=== PATIENT | female | born 1935 | race African-American/Black ===

== ENCOUNTER 2016-10-07 08:31 | Day surgery (SDC) | payer MEDICARE, MEDICAID ==
[~2016-10-07] VITALS: Ht 167.6 cm; Wt 58.6 kg
[2016-10-07] MEDS ORDERED: PROTONIX40 MG PO (09:12)
[2016-10-07] MEDS ORDERED: SYNTHROID88 MCG PO (09:13)
[2016-10-07 09:14] LABS: BASOPHILS 0.2 % (0.0-2.0); EOSINOPHILS 2.1 % (0-7); HEMATOCRIT 39.6 % (36.0-48.0); HEMOGLOBIN 12.7 g/dL (12-16); IMMATURE GRANULOCYTES 0.2 % (0-5); LYMPHOCYTES 27.9 % (15-50); MCH 30.5 pg (26.0-34.0); MCHC 32.1 g/dL (31.0-37.0); MCV 95.2 fL (80.0-100.0); MEAN PLATELET VOLUME 10.9 fL (7.4-10.4); MONOCYTES 9.7 % (2-11); NEUTROPHILS 59.9 % (40-80); PLATELET COUNT 149 10x3/uL (130-400); RBC 4.16 10x6/uL (4.00-5.40); RDW 13.6 % (11.5-14.5); WBC 4.3 10x3/uL (4.8-10.8)
[2016-10-07] MEDS ORDERED: LISINOPRIL5 MG PO (09:14)
[2016-10-07] MEDS ORDERED: ZOCOR20 MG PO (09:15)
[2016-10-07] MEDS ORDERED: COREG6.25 MG PO (09:16)
[2016-10-07] MEDS ORDERED: HYDROCODON-ACE1 EAC7 PO (09:17)
[2016-10-07 09:33] LABS: ANION GAP 9.9 mmol/L (8-16); CALCIUM 9.5 mg/dL (8.5-10.1); CARBON DIOXIDE 31.7 mmol/L (21.0-32.0); CREATININE - SERUM 0.9 mg/dL (0.6-1.3); POTASSIUM - SERUM 3.6 mmol/L (3.5-5.1)
[2016-10-07 09:34] VITALS: BP 157/89; Ht 167.6 cm; Wt 58.6 kg
--- NOTE | 2016-10-07 12:08 | NUR ---
1208 TO GI RECOVERY AREA TO BE MONITORED.
--- NOTE | 2016-10-07 14:01 | NUR ---
1250 iv dc with cather tip intact
--- NOTE | 2016-10-11 13:02 | OP ---
PATIENT NAME: MARISA MARTE MEDICAL RECORD: [id number] :37 LOCATION:[facility] ADMISSION DATE: SURGEON: LOUISE EUGENE DO DATE OF OPERATION: 10/07/2016 PROCEDURE: EGD with biopsies. SCOPE: Olympus video gastroscope. MEDICATIONS: Propofol 80 mg IV per anesthesia. INDICATIONS: Gastroesophageal reflux disease. FINDINGS: Informed consent was given. The patient was made comfortable with the above medication. After reaching an adequate level of sedation by slow IV push, the patient was placed on her left side. The endoscope was then advanced under direct visualization through the mouth to the second portion of the duodenum. The upper, middle, and distal third of the esophagus appeared normal. There was some questionable tension on the endoscope passing through the cricopharyngeus raising suspicion for hypertensive upper esophageal sphincter. This could fit with the patient's symptoms as she described preprocedurally of things sticking in her throat. The GE junction revealed no specific esophagitis. The scope was advanced into the stomach and retroflexed to view the cardia, which appeared normal. The fundus, body of the stomach, and antrum had some granularity and erythema consistent with possible gastritis. Random biopsies were taken of the antrum, incisura, and body of the stomach. Scope was advanced through the pylorus into the bulb of the duodenum and down to the second portion. Both of these sites appeared normal. Scope was then withdrawn from the patient. The patient tolerated the procedure well and there were no complications. IMPRESSION: 1. Possible gastritis. 2. History of an adenomatous polyp in the antrum of the stomach. There were no visualized polyps on today's study. 3. Symptomatic oropharyngeal dysphagia. PLAN AND RECOMMENDATIONS: 1. Discharge home when recovery parameters are met. 2. Continue Protonix 40 mg daily. 3. Consider a barium esophagram versus modified barium swallow for symptoms of oropharyngeal dysphagia. 4. Follow up in the GI clinic as previously scheduled or as needed. TRANSINT:[id number] Voice Confirmation ID: [id number] DOCUMENT ID: [id number] LOUISE EUGENE DO at 1302 CC: [id number] DICTATION DATE: 10/07/16 1208 TROUBLE LINEMAN: 10/07/16 1319 [facility] 10/07/16 [address] [place] [address]
== END 2016-10-07 13:06 | disposition home or self-care (01) ==
LOC: D.OPS 08:31
PROVIDERS: Anesthesiology
DX: K21.9 Gastro-esophageal reflux disease without esophagitis (principal); K29.50 Unspecified chronic gastritis without bleeding; R13.12 Dysphagia, oropharyngeal phase

== ENCOUNTER 2016-10-14 08:51 | Day surgery (SDC) | payer MEDICARE, MEDICAID ==
[~2016-10-14 08:51] MED LIST: COREG6.25 MG PO; HYDROCODON-ACE1 EAC7 PO; LISINOPRIL5 MG PO; PROTONIX40 MG PO; SYNTHROID88 MCG PO; ZOCOR20 MG PO
[2016-10-14 09:43] LABS: BASOPHILS 0.3 % (0-2); EOSINOPHILS 1.1 % (0-7); HEMATOCRIT 43.8 % (36.0-48.0); HEMOGLOBIN 13.8 g/dL (12-16); IMMATURE GRANULOCYTES 0.3 % (0-5); MCH 30.1 pg (26.0-34.0); MCHC 31.5 g/dL (31.0-37.0); MCV 95.4 fL (80.0-100.0); MEAN PLATELET VOLUME 10.8 fL (7.4-10.4); MONOCYTES 17.3 % (2-11); RBC 4.59 10x6/uL (4.00-5.40); RDW 13.6 % (11.5-14.5); WBC 3.7 10x3/uL (4.8-10.8)
[2016-10-14 09:44] LABS: PLATELET COUNT 187 10x3/uL (130-400)
[2016-10-14 10:00] LABS: ANION GAP 14.5 mmol/L (8-16); CALCIUM 9.6 mg/dL (8.5-10.1); CARBON DIOXIDE 27.8 mmol/L (21.0-32.0); POTASSIUM - SERUM 4.3 mmol/L (3.5-5.1)
== END 2016-10-14 13:10 | disposition home or self-care (01) ==
LOC: D.OPS 08:51
PROVIDERS: Anesthesiology
DX: D12.0 Benign neoplasm of cecum (principal); D12.2 Benign neoplasm of ascending colon; K57.30 Diverticulosis of large intestine without perforation or abscess without bleeding; K64.8 Other hemorrhoids; Z01.812 Encounter for preprocedural laboratory examination; I25.10 Atherosclerotic heart disease of native coronary artery without angina pectoris; I10 Essential (primary) hypertension; E03.9 Hypothyroidism, unspecified; K21.9 Gastro-esophageal reflux disease without esophagitis

== ENCOUNTER 2019-06-25 09:34 | Day surgery (SDC) | payer MEDICARE, MEDICAID ==
[~2019-06-25] VITALS: Ht 167.6 cm; Wt 58.6 kg
[2019-06-25 10:08] LABS: BASOPHILS 0.6 % (0-2); EOSINOPHILS 3.7 % (0-7); HEMATOCRIT 40.1 % (36.0-48.0); HEMOGLOBIN 12.9 g/dL (12-16); LYMPHOCYTES 47.2 % (15-50); MCH 30.2 pg (26.0-34.0); MCHC 32.2 g/dL (31.0-37.0); MCV 93.9 fL (80.0-100.0); MEAN PLATELET VOLUME 10.8 fL (7.4-10.4); MONOCYTES 9.2 % (2-11); NEUTROPHILS 39.3 % (40-80); PLATELET COUNT 178 10x3/uL (130-400); RBC 4.27 10x6/uL (4.00-5.40); RDW 12.9 % (11.5-14.5); WBC 3.3 10x3/uL (4.8-10.8)
[2019-06-25 10:14] LABS: ANION GAP 9.4 mmol/L (8-16); CALCIUM 9.7 mg/dL (8.5-10.1); CARBON DIOXIDE 32.6 mmol/L (21.0-32.0); CREATININE - SERUM 0.9 mg/dL (0.6-1.3)
[2019-06-25] MEDS ORDERED: BAYER CHEWABLE81 MG PO (10:27)
[2019-06-25 10:39] VITALS: BP 179/84; Ht 167.6 cm; Wt 58.6 kg
--- NOTE | 2019-06-25 14:52 | NUR ---
1235 IV DC'D. CATHETER TIP INTACT. NO BLEEDING AT SITE. BANDAID APPLIED.
--- NOTE | 2019-06-26 07:49 | OP ---
PATIENT NAME: MARISA MARTE MEDICAL RECORD: [id number] :37 LOCATION:[facility] ADMISSION DATE: SURGEON: LOUISE EUGENE DO DATE OF OPERATION: 06/25/2019 PROCEDURE: EGD with balloon dilation and biopsies. INDICATIONS FOR PROCEDURE: Periumbilical abdominal pain, dysphagia, GERD, abnormal weight loss, nausea. SCOPE: Olympus video gastroscope. MEDICATIONS: Propofol 130 mg IV per anesthesia. ESTIMATED BLOOD LOSS: Minimal. COMPLICATIONS: None. FINDINGS: Informed consent was given. The patient was made comfortable with the above medication. After reaching an adequate level of sedation by slow IV push, the patient was placed on her left side. The endoscope was advanced under direct visualization through the mouth to the second portion of the duodenum. The entire esophagus appeared normal down to the GE junction. At the GE junction, there was a mild nonobstructing Schatzki ring. There was also some mild LA class A reflux-induced esophagitis. Biopsies were taken from the ring/squamocolumnar junction and the ring was dilated to 18 mm successfully. The endoscope was advanced beyond the GE junction into the stomach and retroflexed to view the cardia, where a small sliding hiatal hernia was visualized. Throughout the entire stomach, there were patchy areas of erythema, granularity, and congestion consistent with gastritis. Cold forceps, biopsies were taken from the antrum and incisura to submit for histopathology and to rule out the presence of H. pylori. The endoscope was advanced beyond the pylorus into the duodenum, which appeared normal to the second portion. The endoscope was then withdrawn from the patient. The patient tolerated the procedure well and there were no immediate complications. IMPRESSION: 1. LA class A reflux-induced esophagitis. 2. Mild nonobstructing Schatzki ring, status post dilation 18 mm. 3. Small sliding hiatal hernia. 4. Gastritis. PLAN AND RECOMMENDATIONS: 1. Discharge home when recovery parameters are met. 2. Follow up biopsy specimen results. 3. GERD diet and reflux precautions. 4. Continue current medications including Protonix 40 mg daily. 5. We will offer a manometry study to the patient as her dysphagia has been worked up in the past including a barium Esophagram, modified barium swallow and upper GI. She has also had a gastric emptying scan as well as the upper GI for her pain type symptoms. The studies have all been normal other than a suggestion of an esophageal spasm on the esophagram. 6. Follow up in GI clinic in 4 weeks following the manometry study. TRANSINT:[id number] Voice Confirmation ID: [id number] DOCUMENT ID: [id number] OPERATIVE REPORT [id number] MARISA MARTE NATHAN A DO at 0749 CC: [id number] DICTATION DATE: 06/25/19 1130 ELECTRONICS MECHANIC: 06/25/19 1615 [facility] 06/25/19 [id number] [place] [address]
== END 2019-06-25 13:00 | disposition home or self-care (01) ==
LOC: D.OPS 09:34
PROVIDERS: Anesthesiology; ATTEND Internal Medicine Gastroenterology
DX: K21.0 Gastro-esophageal reflux disease with esophagitis (principal); K44.9 Diaphragmatic hernia without obstruction or gangrene; K22.2 Esophageal obstruction; R10.33 Periumbilical pain; R13.10 Dysphagia, unspecified; R63.4 Abnormal weight loss; R11.0 Nausea; K59.09 Other constipation; Z86.010 Personal history of colon polyps; K29.70 Gastritis, unspecified, without bleeding

== ENCOUNTER 2019-11-11 20:33 | Emergency (ER) | payer MEDICARE, MEDICAID ==
[~2019-11-11] VITALS: Ht 167.6 cm; Wt 59.0 kg
[~2019-11-11 20:33] MED LIST changes: +BAYER CHEWABLE81 MG PO
[2019-11-11 20:38] VITALS: Ht 167.6 cm; Wt 59.0 kg
[2019-11-11] MEDS ORDERED: ZOLOFT25 MG PO (20:40)
[2019-11-11 21:59] VITALS: BP 173/86
== END 2019-11-11 21:59 | disposition home or self-care (01) ==
LOC: D.ER 20:33
DX: K44.9 Diaphragmatic hernia without obstruction or gangrene (principal); K21.0 Gastro-esophageal reflux disease with esophagitis; F41.9 Anxiety disorder, unspecified; R13.10 Dysphagia, unspecified; K22.2 Esophageal obstruction; I10 Essential (primary) hypertension; I25.2 Old myocardial infarction; K21.9 Gastro-esophageal reflux disease without esophagitis; E03.9 Hypothyroidism, unspecified

== ENCOUNTER → 2019-11-28 07:54 | Outpatient (CLI) | payer MEDICARE, MEDICAID ==
[2019-11-11 20:38] VITALS: BMI 20.8
[~2019-11-28 07:54] MED LIST changes: +ZOLOFT25 MG PO
== END | disposition home or self-care (01) ==
LOC: D.OPS 07:54
PROVIDERS: ATTEND Internal Medicine Gastroenterology
DX: R13.10 Dysphagia, unspecified (principal)

== ENCOUNTER 2019-12-21 16:51 | Emergency (ER) | payer MEDICARE, MEDICAID ==
[~2019-12-21] VITALS: Ht 167.6 cm; Wt 56.8 kg
[2019-12-21 16:57] VITALS: Ht 167.6 cm; Wt 56.8 kg
[2019-12-21 18:57] LABS: BASOPHILS 0.2 % (0-2); EOSINOPHILS 1.8 % (0-7); HEMATOCRIT 39.6 % (36.0-48.0); HEMOGLOBIN 12.6 g/dL (12-16); IMMATURE GRANULOCYTES 0.2 % (0-5); LYMPHOCYTES 32.6 % (15-50); MCH 29.8 pg (26.0-34.0); MCHC 31.8 g/dL (31.0-37.0); MCV 93.6 fL (80.0-100.0); MEAN PLATELET VOLUME 10.5 fL (7.4-10.4); MONOCYTES 10.7 % (2-11); NEUTROPHILS 54.5 % (40-80); PLATELET COUNT 198 10x3/uL (130-400); RBC 4.23 10x6/uL (4.00-5.40); RDW 13.2 % (11.5-14.5); WBC 4.4 10x3/uL (4.8-10.8)
[2019-12-21 19:10] LABS: CALC OSMOLALITY 266 mosm/kg (275-300); CALCIUM 9.4 mg/dL (8.5-10.1); CARBON DIOXIDE 29.6 mmol/L (21.0-32.0); CHLORIDE - SERUM 99 mmol/L (98-107); CREATININE - SERUM 0.8 mg/dL (0.6-1.3); GLUCOSE 88 mg/dL (74-106); POTASSIUM - SERUM 4.3 mmol/L (3.5-5.1); SODIUM 134 mmol/L (136-145); UREA NITROGEN 13 mg/dL (7-18); eGFR NON AFRICAN AMERICAN 73 mL/min (90-120)
[2019-12-21 19:11] LABS: APTT 29.6 SECONDS (22.8-39.4); INR 1.06 (0.85-1.17); PROTIME 13.8 SECONDS (11.6-15.0)
[2019-12-21 19:24] LABS: ALBUMIN 3.7 g/dL (3.4-5.0); ALKALINE PHOSPHATASE 84 U/L (30-120); ALT (SGPT) 17 U/L (10-68); CKMB 0.6 U/L (0.0-3.6); CREATINE KINASE 70 UL (21-215); PROTEIN - SERUM 7.4 g/dL (6.4-8.2); TROPONIN-I < 0.017 ng/mL (0.000-0.060)
[2019-12-21] MEDS ORDERED: METHOCARBAMOL500 MG PO (19:57)
[2019-12-21 20:08] VITALS: BP 130/79
== END 2019-12-21 20:08 | disposition home or self-care (01) ==
LOC: D.ER 16:51
PROVIDERS: Family Medicine
DX: M62.830 Muscle spasm of back (principal); M25.512 Pain in left shoulder; R11.0 Nausea; I10 Essential (primary) hypertension; I25.2 Old myocardial infarction; E03.9 Hypothyroidism, unspecified

== ENCOUNTER 2020-01-18 06:51 | Day surgery (SDC) | payer MEDICARE, MEDICAID ==
[~2020-01-18] VITALS: Ht 167.6 cm; Wt 50.0 kg
[~2020-01-18 06:51] MED LIST changes: +METHOCARBAMOL500 MG PO
[2020-01-18 07:30] LABS: ANION GAP 7.5 mmol/L (8-16); CALCIUM 9.4 mg/dL (8.5-10.1); CARBON DIOXIDE 30.5 mmol/L (21.0-32.0); CREATININE - SERUM 0.8 mg/dL (0.6-1.3)
[2020-01-18 07:35] LABS: BASOPHILS 0.7 % (0-2); HEMATOCRIT 40.1 % (36.0-48.0); HEMOGLOBIN 12.8 g/dL (12-16); LYMPHOCYTES 36.8 % (15-50); MCH 29.8 pg (26.0-34.0); MCHC 31.9 g/dL (31.0-37.0); MCV 93.3 fL (80.0-100.0); MEAN PLATELET VOLUME 10.2 fL (7.4-10.4); MONOCYTES 10.4 % (2-11); NEUTROPHILS 50.1 % (40-80); PLATELET COUNT 212 10x3/uL (130-400); WBC 3.1 10x3/uL (4.8-10.8)
[2020-01-18] MEDS ORDERED: AMITIZA24 MCG PO (08:22)
[2020-01-18] MEDS ORDERED: OMEPRAZOLE40 MG PO (08:29)
[2020-01-18] MEDS ORDERED: FERROUS SULFAT325 MG PO (08:30)
[2020-01-18 08:35] VITALS: BP 165/116; Ht 167.6 cm; Wt 50.0 kg
--- NOTE | 2020-01-18 12:10 | NUR ---
IV D/C'D WITH CANNULA INTACT. DISCHARGE INSTRUCTIONS GIVEN. DENIES C/O.
--- NOTE | 2020-01-20 10:20 | OP ---
PATIENT NAME: MARISA MARTE MEDICAL RECORD: [id number] :37 LOCATION:[facility] ADMISSION DATE: SURGEON: LOUISE EUGENE DO DATE OF OPERATION: 01/18/2020 PROCEDURE: Colonoscopy with polypectomy. INDICATION FOR PROCEDURE: Screening colonoscopy with a family history of cancer of the GI tract and personal history of polyps. This is a 3-year recall. SCOPE: Olympus video pediatric colonoscope. MEDICATIONS: Propofol 350 mg IV per anesthesia. WITHDRAWAL TIME: 22 minutes. ESTIMATED BLOOD LOSS: Minimal. COMPLICATIONS: None. FINDINGS: Informed consent was given. The patient was made comfortable with the above medication. After reaching an adequate level of sedation by slow IV push, the patient was placed on her left side. A digital rectal examination was performed and was normal. The endoscope was then advanced under direct visualization through the rectum to the cecum, confirmed by the presence of the appendiceal orifice and ileocecal valve. The endoscope was slowly withdrawn and the mucosa was carefully examined. Prep quality was good. There were multiple polyps visualized on today's examination. Seven benign-appearing sessile polyps ranging in size from 3 to 6 mm in diameter were removed from the ascending colon with a hot snare. Five benign-appearing sessile polyps ranging in size from 3 to 5 mm in diameter were found in the transverse colon and removed using a hot snare. Four benign-appearing sessile polyps ranging in size from 3 to 5 mm in diameter were removed from the descending colon using a hot snare. There was evidence of mild diverticulosis involving the sigmoid colon and descending colon. Retroflexion was performed in the rectum with visualization of grade I internal hemorrhoids without bleeding. The endoscope was withdrawn from the patient. The patient tolerated the procedure well and there were no complications. IMPRESSION: 1. Multiple polyps as described above, removed using a hot snare. 2. Mild diverticulosis. 3. Grade I internal hemorrhoids without bleeding. PLAN AND RECOMMENDATIONS: 1. Discharge home when recovery parameters are met. 2. Follow up biopsy specimen results. 3. High-fiber diet. 4. Continue current medications. 5. No further recalls are necessary based on the patient's age unless symptoms warrant evaluation. NTS:[id number] Voice Confirmation ID: [id number] DOCUMENT ID: [id number] OPERATIVE REPORT [id number] MARISA MARTE LOUISE EUGENE DO at 1020 CC: [id number] DICTATION DATE: 01/18/20 1023 NANNY BABYSITTER: 01/18/209 [facility] 01/18/20 [id number] [place] [address]
== END 2020-01-18 11:15 | disposition home or self-care (01) ==
LOC: D.OPS 06:51
PROVIDERS: Anesthesiology; ATTEND Internal Medicine Gastroenterology
DX: Z12.11 Encounter for screening for malignant neoplasm of colon (principal); K63.5 Polyp of colon; Z86.010 Personal history of colon polyps; Z80.0 Family history of malignant neoplasm of digestive organs; R63.4 Abnormal weight loss; R13.10 Dysphagia, unspecified

== ENCOUNTER 2020-11-24 08:01 | Day surgery (SDC) | payer MEDICARE, MEDICAID ==
[~2020-11-24] VITALS: Ht 167.6 cm; Wt 58.2 kg
--- NOTE | ~2020-11-24 | OP ---
PATIENT NAME: MARISA MARTE MEDICAL RECORD: [id number] :37 LOCATION:[facility] ADMISSION DATE: SURGEON: LOUISE EUGENE DO DATE OF OPERATION: 11/24/2020 PROCEDURE: EGD with dilation and biopsies. INDICATION FOR PROCEDURE: Nausea, epigastric pain, dysphagia, GERD. SCOPE: Olympus video gastroscope. MEDICATIONS: Propofol 400 mg IV per anesthesia. ESTIMATED BLOOD LOSS: Minimal. COMPLICATIONS: None. FINDINGS: Informed consent was given. The patient was made comfortable with the above medication. DESCRIPTION OF PROCEDURE: After reaching an adequate level of sedation by slow IV push, the patient was placed on the left side. The endoscope was advanced under direct visualization through the mouth to the second portion of the duodenum with ease. In the esophagus, there was evidence of LA class A reflux induced esophagitis at the GE junction. There were some mild esophageal stenoses at both the upper esophageal sphincter and lower esophageal sphincter. The endoscope was advanced beyond the GE junction into the stomach and retroflexed to view the cardia and fundus, which appeared normal. The mucosa throughout the body of the stomach as well as the antrum or prepyloric regions appeared normal. Cold forceps biopsies were taken from the antrum and incisura to submit for histopathology and to rule out the presence of H. pylori. The endoscope was advanced beyond the pylorus into the duodenum, which appeared normal to the second portion. Random biopsies were taken. The endoscope was withdrawn back into the esophagus and cold forceps biopsies were taken at the squamocolumnar junction to rule out the presence of Block's mucosa. A guidewire was placed down the endoscope into the stomach and the endoscope was withdrawn from the patient and a 16-mm Savary dilator was used to pass through the upper esophageal sphincter and lower esophageal sphincter. The dilator was withdrawn as well as the guidewire and the endoscope was passed back into the esophagus. A CRE dilating balloon was then placed through the working channel of the endoscope and the lower esophageal sphincter was dilated up to 18 mm successfully. It was then withdrawn along with the endoscope. The patient tolerated the procedure well and there were no complications. IMPRESSION: 1. LA class A reflux-induced esophagitis. 2. Esophageal stenosis, status post CRE dilation up to 18 mm of the lower esophageal sphincter and Savary dilation to 16 mm of the upper esophageal sphincter. PLAN AND RECOMMENDATIONS: 1. Discharge home when recovery parameters are met. 2. Follow up biopsy specimen results. 3. GERD diet and reflux precautions. 4. Continue current medications. OPERATIVE REPORT [id number] MARISA MARTE 5. PIPIDA scan to evaluate gallbladder function. 6. Follow up in GI clinic in 6 to 8 weeks. TRANSINT:[id number] Voice Confirmation ID: [id number] DOCUMENT ID: [id number] LOUISE EUGENE DO CC: [id number] DICTATION DATE: 11/24/20 1137 SOFTWARE RECRUITER: 11/24/201951 [facility] 11/24/20 [facility] [address] [place] [address]
[~2020-11-24 08:01] MED LIST changes: +AMITIZA24 MCG PO; +FERROUS SULFAT325 MG PO; +OMEPRAZOLE40 MG PO
[2020-11-24 08:17] LABS: MCHC 33.3 g/dL (31.0-37.0); MCV 90.2 fL (80.0-100.0); PLATELET COUNT 199 10x3/uL (130-400); RBC 3.99 10x6/uL (4.00-5.40); WBC 2.9 10x3/uL (4.8-10.8)
[2020-11-24 08:24] LABS: ANION GAP 9.3 mmol/L (8-16); CARBON DIOXIDE 31.7 mmol/L (21.0-32.0); CREATININE - SERUM 0.9 mg/dL (0.6-1.3)
[2020-11-24 09:43] VITALS: BP 143/81; Ht 167.6 cm; Wt 58.2 kg
[2020-11-24] MEDS ORDERED: ZYRTEC10 MG PO (09:51)
[2020-11-24] MEDS ORDERED: PROTONIX20 MG PO (09:51)
[2020-11-24] MEDS ORDERED: PEPCID40 MG PO (09:52)
[2020-11-24 14:12] LABS: LYMPHOCYTES 29 % (15-50); MONOCYTES 7 % (2-11); NEUTROPHILS 64 % (40-80); PLATELET ESTIMATE NORMAL
--- NOTE | 2020-11-24 17:43 | NUR ---
DISCUSSED PIPIDA STUDY AND TIMES, MEALS, ETC. IV D/C'D WITH CANNULA INTACT, PRESSURE HELD AND DRSG PLACED. OTHER DISCHARGE INSTRUCTIONS GIVEN TO PT AND SHE VERBALIZED AN UNDERSTANDING. DISCHARGED HOME IN STABLE CONDITION
== END 2020-11-24 13:20 | disposition home or self-care (01) ==
LOC: D.OPS 08:01
PROVIDERS: Anesthesiology; ATTEND Internal Medicine Gastroenterology
DX: R11.0 Nausea (principal); R10.13 Epigastric pain; R13.10 Dysphagia, unspecified; K21.00 Gastro-esophageal reflux disease with esophagitis, without bleeding; K22.2 Esophageal obstruction